=== PATIENT | female | born 1985 | race Caucasian/White ===

== ENCOUNTER 2021-01-14 03:10 | Emergency (ER) | payer OTHER ==
[~2021-01-14] VITALS: Ht 165.1 cm; Wt 101.0 kg
[~2021-01-14 03:10] MED LIST: AMOXICILLIN500 MG OR; CIPROFLOXACN500 MG PO; LORTAB 5 OR; NO HOME MEDS; NORCO1 TA1 PO; ULTRAM50 M1 PO; VENTOLIN HFA IN; ZYRTEC10 MG OR
[2021-01-14 03:15] VITALS: BP 126/88
== END 2021-01-14 05:01 | disposition home or self-care (01) | DRG 179 ==
LOC: ED 03:10
DX: U07.1 COVID-19 (principal); F17.200 Nicotine dependence, unspecified, uncomplicated

== ENCOUNTER 2021-01-29 08:36 | Observation (INO) | payer SELFPAY ==
[~2021-01-29] VITALS: Ht 165.1 cm; Wt 102.0 kg
--- NOTE | 2021-01-29 09:04 | NUR ---
PATIENT AMBULATED TO ROOM WITH STEADY GAIT AND PHYSICIAN NOTIFIED OF PATIENT STATUS
[2021-01-29 10:01] LABS: HEMATOCRIT 40.1 % (37.0-47.0); HEMOGLOBIN 13.2 g/dl (12.0-16.0); IMMATURE GRANULOCYTES 0.1 % (0.0-5.0); MEAN CELL VOLUME 87.9 fL CALC (80.0-100.0); MEAN CORPUSCULAR HGB 28.9 pG CALC (26.0-32.0); MEAN CORPUSCULAR HGB CONC 32.9 g/dL CAL (32.0-36.0); NEUT# 7.16 thou/uL (2.00-7.15); RED BLOOD COUNT 4.56 mill/uL (4.20-5.60); RED CELL DISTRI WIDTH 12.2 % (11.5-15.5)
[2021-01-29 10:20] LABS: ALBUMIN 4.1 g/dL (3.2-5.0); ALKALINE PHOSPHATASE 108 u/l (38-126); ANION GAP 13 (6-22 (CALC)); BILIRUBIN, TOTAL 0.8 mg/dL (0.0-1.4); BUN 8 mg/dL (7-17); BUN/CREATININE RATIO 12 (12-20 (CALC)); CARBON DIOXIDE 24 mmol/l (22-30); CHLORIDE 102 mmol/l (95-108); CREATININE 0.7 mg/dL (0.5-1.0); GFR > 60 ML/MIN (>=60 (CALC)); GFR FOR AFR.AMER. > 60 ML/MIN (>=60 (CALC)); POTASSIUM 3.8 mmol/l (3.5-5.1); SGOT/AST 21 u/l (14-36); SODIUM 136 mmol/l (137-146); TOTAL PROTEIN 7.6 g/dL (6.3-8.2)
--- NOTE | 2021-01-29 16:35 | NUR ---
PATIENT HAD COME FROM ER VIA WHEELCHAIR. ASSESSMENT DONE. PATIENT IS ALERT AND ORIENT X3. PATIENT STATED PAIN ABD 3/10 BUT REFUSED PAIN MEDICATION AT THIS TIME. ABDOMINAL IS WARM TO THE TOUCH AND MODERATE REDNESS NOTED. ALSO THE PERIUMBILICAL HAS MILD CLEAR DRAINAGE NOTED. PICTURE TAKEN. IVF INFUSING WELL. PATIENT DENIES NEEDS AT THIS TIME. CALL LIGHT IN REACH.
[2021-01-29 16:37] VITALS: BP 133/78
[2021-01-29 19:20] VITALS: BP 151/79
--- NOTE | 2021-01-29 19:24 | NUR ---
PT RESTING IN BED WATCHING TV ABD JANNET NOTED REDNESS AND INFLAMMATION TO UMBILICUS AND SURROUNDING SKIN, CLEAR DRAINAGE NOTED FROM UMBLICUS. NO SIGNS OF DISTRESS NOTED, DISCUSSED POC, PT MEDICATED FOR PAIN AT THIS TIME. INITIATED IV VANCOMYCIN. QUESTIONS ANSWERED REGARDING POC, ASSESSMENT COMPLETED, CALL LIGHT IN REACH,CONTINUE TO MONITOR.
--- NOTE | 2021-01-29 21:10 | NUR ---
PT RESTING IN BED, CLENCHING ABD, PT STATES 'IT FEELS LIKE IT'S ON FIRE", ICE PACK PROVIDED, NOTIFIED MD AND NEW ORDERS RECEIVED. PENDING MED PROFILE TO MEDICATE PT. PT VERBALIZED UNDERSTANDING. CALL LIGHT IN REACH,CONTINUE TO MONITOR.
--- NOTE | 2021-01-29 22:00 | NUR ---
PT RESTING IN BED, STATES THAT THE ICE PACK HELPED SOME BUT IS STILL 10/10 PAIN, NOTED IV SITE TO LAC INFILTRATED, PT AGREES TO HAVE NEW IV SITE OBTAINED. #22 RFA INSERTED, X1 ATTEMPTED, PT TOLERATED WELL. ADMINSITERED DOSE OF TORADOL, CALL LIGHT IN REACH,CONTINUE TO MONITOR.
--- NOTE | 2021-01-30 00:24 | NUR ---
PT RESTING IN BED WATCHING TV, PT STATES SHE FEELS SO MUCH BETTER, NOTED INFLAMMATION HAS SUBSIDED. PT MENTIONED THAT DURING HER HER UMBILICUS DID NOT PERTRUDE MUCH IT IS NOW, PT DENIES ANY NEEDS OR COMPLAINTS AT THIS TIME, CALL LIGHT IN REACH,CONTINUE TO MONITOR.
--- NOTE | 2021-01-30 02:35 | NUR ---
PT RESTING IN BED, NO SIGNS OF DISTRESS NOTED, RESP EVEN AND UNLABORED. PT C/O PAIN / MEDICATED FOR PAIN WITH ULTRAM, IV VANCO INITIATED. PT VOICES NO OTHER NEEDS OR COMLAINTS AT THIS TIME, CALL LIGHT IN REACH,CONTINUE TO MONITOR.
[2021-01-30 04:00] VITALS: BP 120/59
--- NOTE | 2021-01-30 04:00 | NUR ---
PT RESTING IN BED WITH EYES CLOSED, RESP EVEN AND UNLABORED. CALL LIGHT IN REACH,CONTINUE TO MONITOR.
[2021-01-30] MEDS ORDERED: BACTRIM DS1 TAB PO (07:07)
[2021-01-30 08:52] VITALS: BP 130/81
--- NOTE | 2021-01-30 08:52 | NUR ---
PT SITTING ON THE SIDE OF THE BED. A&O X4. NO DISTRESS NOTED. PT REPORTS MINIMAL PAIN AT THIS TIME. ABD REDDENED AND WARM, IMPROVED COMPARED TO YESTERDAY. CLEAR SANGUINEOUS DISCHARGE NOTED FROM UMBILICUS, NO ODOR NOTED AT THIS TIME. CLEAR BREATH SOUNDS UPON AUSCULTATION. ACTIVE BOWEL SOUNDS X4 QUADRANTS. IV HEALTHY AND PATENT WITH IVF FLUIDS INFUSING PER MAR ORDERS. ASSESSMENT COMPLETED. NO OTHER NEEDS AT THIS TIME. CALL LIGHT WITHIN REACH, ISOLATION PRECAUTIONS IN PLACE.
--- NOTE | 2021-01-30 09:43 | NUR ---
DR MEADOWS AT BEDSIDE DISCUSSING POC
--- NOTE | 2021-01-30 10:15 | NUR ---
INFORMED CONSENT OBTAINED BY PATIENT AT THIS TIME FOR BEDSIDE I&D OF UMBILICAL ABSCESS. DR MEADOWS AT BEDSIDE FOR I&D. DILAUDID IV GIVEN AFTER CONSENT WAS OBTAINED. PT TOLERATED PROCEDURE WELL. PURULENT DRAINAGE NOTED. DRESSING APPLIED BY . NO OTHER NEEDS AT THIS TIME. CALL LIGHT WITHIN REACH.
[2021-01-30 10:50] VITALS: BP 119/60
--- NOTE | 2021-01-30 11:07 | NUR ---
PT C/O PAIN, IV TORADOL GIVEN. DRESSING CHANGED WITH SANGUINEOUS DRAINAGE NOTED, PT TOLERATED WELL. PT C/O OF NAUSEA, VOMITING EPISODE X1. ORDER TO BE OBTAINED FOR IV ZOFRAN PRN, ALTHOUGH PT REPORTS RELIEF OF NAUSEA AFTER VOMITING EPISODE. NO OTHER NEEDS AT THIS TIME. CALL LIGHT WITHIN REACH.
--- NOTE | 2021-01-30 12:44 | NUR ---
PT IS A 35 YOF WHO PRESENTS VWITH CELLULITIS. ALL MEDS IN PTS CHART WERE REVIEWED. PT WAS STARTED ON VANCOMYCIN 1G IV Q8H ON 01/30 @ 1100. TROUGH WAS DRAWN 01/31 @ 1030 B4 4TH DOSE. TROUGH = 11 MCG/ML, GOAL TROUGH IS 10-15 MCG/ML. CONTINUE AT SAME DOSE AND TROUGH WILL BE RE-CHECKED 01/31 @ 1030. PHARMACY WILL CONTINUE TO FOLLOW.
[2021-01-30 15:50] VITALS: BP 120/53
--- NOTE | 2021-01-30 16:10 | NUR ---
PT SITTING IN BED. NO NEEDS REPORTED AT THIS TIME. DRESSING CDI. CALL LIGHT WITHIN REACH.
--- NOTE | 2021-01-30 17:06 | NUR ---
PT SITTING IN BED, DRESSING CHANGED AT THIS TIME. PT TOLERATED WELL. 900 CC OF YELLOW URINE EMPTIED. NO OTHER NEEDS AT THIS TIME. CALL LIGHT WITHIN REACH.
[2021-01-30 19:30] VITALS: BP 136/82
--- NOTE | 2021-01-30 19:30 | NUR ---
PT RETURNED TO BED FROM SHOWER, SHE STATES SHE FEELS SO MUCH BETTER. PT ABLE TO KEEP ABD COVERED, NOTED DRESSING TO ABD,CDI. PT AMBULATED WELL TO BED. DISCUSSED POC, RECONNECTED PT TO IV, IV PATENT, INITATED IV VANCO. PT VOICES NO NEEDS OR COMPLAINTS AT THIS TIME, ASSESSMENT COMPLETED, CALL LIGHT IN REACH, CONTINUE TO MONITOR.
--- NOTE | 2021-01-31 00:56 | NUR ---
PT RESTING IN BED, NO SIGNS OF DISTRESS NOTED, RESP EVEN AND UNLABORED. PT CALLED C/O PAIN TO ABD 08/15, PT MEDICATED PER JUL, DRESSING TO ABD CDI, CALL LIGHT IN REACH,CONTINUE TO MONITOR.
--- NOTE | 2021-01-31 01:34 | NUR ---
PT C/O PAIN STILL AFTER TRAMADOL, PT MEDICATED WITH TORADOL AND ICE PACK PROVIDED, PT STATES IT IS BURNING AND THROBBING, CALL LIGHT IN REACH,CONTINUE TO MONITOR.
--- NOTE | 2021-01-31 03:02 | NUR ---
PT RESTING IN BED, STATES PAIN HAS SUBSIDED BUT SOME PAIN TO IV SITE, IV APPEARS INFILTRATED, NO REDNESS NOTED, IV SITE REMOVED, CATHETER INTACT. NEW IV STARTED, PT TOLERATED WELL. CALL LIGHT IN REACH,CONTINUE TO MONITOR.
[2021-01-31 04:00] VITALS: BP 132/59
[2021-01-31 08:17] VITALS: BP 124/70
--- NOTE | 2021-01-31 08:45 | NUR ---
PT SITTING IN BED, A&O X4. NO DISTRESS NOTED. PT DENIES ANY PAIN AT THIS TIME. CLEAR BREATH SOUNDS UPON AUSCULTATION; REMAINS ON ROOM AIR. ACTIVE BOWEL SOUNDS X4 QUADRANTS. DRESSING REMAINS CDI. NO OTHER NEEDS AT THIS TIME. CALL LIGHT WITHIN REACH.
--- NOTE | 2021-01-31 12:09 | NUR ---
S: YANICK DE OLIVEIRA is a 35 F who presents with cellulitis. All medications in patient's chart were reviewed. O: VS: BP 124/70 mmHg, P 89 bpm, RR 18, T 97.5 F W 102 kg, HT 65 in, Scr= 0.7 mg/dL, CrCl= 133 ml/min A: Blood culture is pending. Wound culture shows mixed gram positive arpit. No pathogens isolated. P: Patient is on ceftriaxone 1g IV Q24H. Vancoycin trough on 01/31/21 = 13 mcg/ml, with goal trough of 10-15 mcg/mL. Trough was drawn late and will be checked again tomorrow due to upward trend and patient characteristics. Continue Vancomycin 1g IV Q8H. Next vancomycin will be drawn on 02/01/21 at 1030, prior to the 1100 dose. Pharmacy will follow and or advise on antibiotics use as needed.
--- NOTE | 2021-01-31 12:10 | NUR ---
PT REPORT RECEIVED FROM ROSETTA RANDALL. PT ALERT AND ORIENTATED X4. DENIES PAIN AT THIS TIME. INFORMED OF PENDING VANCO TROUGH AND EDUCATION OF LAB VALUES GIVEN. STATES UNDERSTANDING. PT DENIES ANY FURTHER NEEDS OR CONCERNS AT THIS TIME. CALL LIGHT WITHIN REACH, INSTRUCTED PT TO CALL FOR ASSISTANCE, STATES UNDERSTANDING.
--- NOTE | 2021-01-31 13:12 | NUR ---
PT GIVEN VANCO AT THIS TIME. EDUCATION FOR S/S OF REACTION PROVIDED, DRSG CHANGE TO ABDOMEN REMOVED PER PATIENTS REQUEST AND DSD RE-APPLIED. DENIES PAIN, SOB OR DISCOMFORT. CALL LIGHT WITHIN REACH, INSTRUCTED PT TO CALL FOR ASSISTANCE, STATES UNDERSTANDING.
[2021-01-31] MEDS ORDERED: AMOX/K CLAV875 M1 PO (16:14)
[2021-01-31] MEDS ORDERED: DOXYCYCL HYC100 MG PO (16:15)
--- NOTE | 2021-01-31 16:15 | NUR ---
call made to devorah wu to be d/c and to follow up in 2 weeks in office.
[2021-01-31 17:35] VITALS: BP 114/70
--- NOTE | 2021-01-31 19:00 | NUR ---
RECEIVED REPORT FROM NURSE ALEJANDRE PATIENT HAS ORDER FOR DISCHAGE, DAY NURSE PRINTED DISCHARGED PAPERS, JUST WAITING FOR IV ANTIBIOTIC TO BE CONSUMED.
[2021-01-31 20:10] VITALS: BP 135/80
--- NOTE | 2021-01-31 20:10 | NUR ---
PATIENT DISCHARGE INSTRUCTION GIVEN, AND SIGNED.
--- NOTE | 2021-01-31 20:16 | NUR ---
DISCHRAGE INSTRUCTIONS GIVEN TO THE PATIENT AND SIGNED, IV REMOVED, CATHETER INTACT.
--- NOTE | 2021-01-31 20:43 | NUR ---
PATIENT FOR DISCHARGE VITAL SIGNS STABEL AND RECORDED, ASSISTED VIA WHEELCHAIR OUT OF THE HOSPITAL TO CAR.
== END 2021-01-31 20:43 | disposition home or self-care (01) | DRG 602 ==
LOC: ED 08:36 → ED-I 13:40 → ED 13:59 → MS2 14:00
PROVIDERS: Family Medicine; ADMIT Internal Medicine; ATTEND Internal Medicine
PROC: 0H97XZZ Drainage of Abdomen Skin, External Approach (ICD-10-PCS; principal; 2021-01-30)
DX: L02.216 Cutaneous abscess of umbilicus (principal); L03.311 Cellulitis of abdominal wall; U07.1 COVID-19; E87.2 Acidosis
CPT/HCPCS: G0378; Q9967